=== PATIENT | male | born 1955 | race Caucasian/White ===

== ENCOUNTER 2023-06-29 16:53 | Emergency (ER) | payer OTHER, SELFPAY ==
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
[2023-06-29 17:31] VITALS: BP 177/101; PULSE 68; RESP 18; TEMP 36.8; O2SAT 97; BMI 27.3
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
== END 2023-06-29 19:20 | disposition home or self-care (01) ==
PROVIDERS: Emergency Provider Emergency Medicine
DX: S62.91XA Unspecified fracture of right hand, initial encounter for closed fracture (principal); M25.531 Pain in right wrist; V43.52XA Car driver injured in collision with other type car in traffic accident, initial encounter; Y93.9 Activity, unspecified; Y92.410 Unspecified street and highway as the place of occurrence of the external cause; Y99.9 Unspecified external cause status
CPT/HCPCS: 29125; 73110; 73130; 99282; 99283

== ENCOUNTER 2023-07-01 08:22 | Outpatient (AMB) | payer OTHER, SELFPAY ==
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
== END 2023-07-01 09:16 | disposition home or self-care (01) ==
PROVIDERS: Visit Provider Physician Assistant
DX: S62.306A Unspecified fracture of fifth metacarpal bone, right hand, initial encounter for closed fracture (principal)
CPT/HCPCS: 26600; 99204

== ENCOUNTER → 2023-07-01 08:22 | Outpatient (BNVA) | payer OTHER, SELFPAY | PROVIDERS: Visit Provider Physician Assistant | DX: S62.306A Unspecified fracture of fifth metacarpal bone, right hand, initial encounter for closed fracture (principal) | CPT/HCPCS: 26600 ==

== ENCOUNTER 2023-07-08 08:41 | Outpatient (REF) | payer OTHER, SELFPAY | END 2023-07-08 08:42 | disposition home or self-care (01) | LOC: HO.HOSX 08:41 | PROVIDERS: Visit Provider Physician Assistant | DX: S62.306D Unspecified fracture of fifth metacarpal bone, right hand, subsequent encounter for fracture with routine healing (principal) | CPT/HCPCS: 29085; 73130; 99212 ==

== ENCOUNTER 2023-07-08 08:41 | Outpatient (AMB) | payer OTHER, SELFPAY ==
--- NOTE | 2023-07-08 08:47 | A.OFFVIS_ITS ---
Intake Vital Signs 07/08/23 08:48 Height 5 ft 7 in Weight 174 lb BMI 27.2 Intake Visit Reasons: ov- RT 5th Metacarpal FX DOI 06/29/23. Intake Note: La Nena 68 year old right hand dominant male presents today for a follow up of his right 5th metacarpal fx, DOI 06/29/23. Patient reports that his swelling has improved. He continues to have soreness in his hand. Allergies No Known Allergies Allergy (Verified 07/08/23 08:49) HPI ov- RT 5th Metacarpal FX DOI 06/29/23. HPI Details 68-year-old male who returns to the [facility] today for a follow-up of right 5th metacarpal fracture, 06/29/23. He states he has improvement in his pain and swelling but he does c/o soreness in his hand. He is doing well overall and has no other concerns today. [facility] Surgical History Hx of left knee surgery Social History Alcohol intake: current Patient Tobacco Use Status: Never used Tobacco Current occupational status: employed Current occupation: logging truck driver Review of Systems Const All systems reviewed & are unremarkable except as noted in HPI and below Physical Exam Vital Signs: BMI result Body Mass Index 27.2 Const General: cooperative and no acute distress Orientation/consciousness: patient oriented x3 Resp Effort & Inspection: normal respiratory effort and able to speak in complete sentences Cardio Peripheral pulses: Peripheral pulses 2+ throughout Skin General skin exam: no rashes or lesions noted Neuro General: patient oriented x3 Extrem Other: Right hand: Significant edema located over the 4th and 5th metacarpals on the dorsal aspect of the hand. Tenderness to palpation at the fracture site of the 5th metacarpal. Able to flex and extend all digits but is significantly limited due to pain and stiffness. Full wrist ROM. Sensation intact. Capillary refill is brisk. Office Procedures Casting/Splints 97156-Rhsb/Wrist Cast Application Procedure code (CPT) selection complete Results Reviewed Results Reviewed: Xrays were obtained in the office today and personally reviewed by me show an Oblique fracture distal fifth metacarpal with mild displacement. No additional fracture seen. Assessment & Plan Assessment & Plan (1) Fracture of fifth metacarpal bone of right hand: Code(s): S62.306A - Unspecified fracture of fifth metacarpal bone, right hand, initial encounter for closed fracture Qualifiers: Encounter type: initial encounter Fracture alignment: nondisplaced Fracture type: closed Metacarpal location: unspecified portion of metacarpal Qualified Code(s): S62.306A - Unspecified fracture of fifth metacarpal bone, right hand, initial encounter for closed fracture Plan He was placed in a short arm finger spica cast. He will perform no lifting more than a cellphone. He will see us back in 4 weeks for cast off and new x-rays, sooner if needed. Orders: Orders XR hand RT min 3V Today M79.641 - Pain in right hand Patient Instructions: Scribed for Maddison Holliday PA-C, by Jose Rodriguez medical records technician, on 07/08/2023 at 8:45 AM EST. I, Maddison Holliday PA-C, have personally reviewed and agree with the information entered by the scribe. Coding Level of Care Code Global (12748) Diagnoses Closed nondisplaced fracture of fifth metacarpal bone of right hand, unspecified portion of metacarpal, initial encounter S62.306A Encounter type: initial encounter Fracture alignment: nondisplaced Fracture type: closed Metacarpal location: unspecified portion of metacarpal CPT Codes Casting - CPT: 36473-Azjd/Wrist Cast Application ([id number])
[2023-07-08 08:48] VITALS: BMI 27.2
== END 2023-07-08 09:52 | disposition home or self-care (01) ==
PROVIDERS: Visit Provider Physician Assistant
DX: S62.306A Unspecified fracture of fifth metacarpal bone, right hand, initial encounter for closed fracture (principal)
CPT/HCPCS: 29085; 99024

== ENCOUNTER 2023-08-05 07:34 | Outpatient (REF) | payer OTHER, SELFPAY ==
--- NOTE | ~2023-08-05 | XR_ITS ---
EXAMINATION: XR HAND, RIGHT CLINICAL INFORMATION: Pain. COMPARISON: Prior radiographs, most recently 07/08/2023. TECHNIQUE: PA, lateral, and oblique views of the right hand. FINDINGS: Bony alignment and mineralization are normal. There is an ulnar minus variance. An oblique, comminuted fracture is seen of the distal shaft and metaphysis of the right fifth metacarpal bone. There is stable mild displacement of fracture fragments, with good periosteal callus formation now noted. No focal soft tissue swelling, gas or foreign body is seen. Again, there are degenerative soft tissue calcifications in the proximal index finger. XR/XR hand RT min 3V IMPRESSION: There is stable alignment of an oblique, comminuted fracture of the distal right fifth metacarpal bone. There is good adjacent periosteal callus formation now noted.
== END 2023-08-05 07:35 | disposition home or self-care (01) ==
LOC: HO.HOSX 07:34
PROVIDERS: Visit Provider Physician Assistant
DX: S62.306D Unspecified fracture of fifth metacarpal bone, right hand, subsequent encounter for fracture with routine healing (principal)
CPT/HCPCS: 73130; 99212

== ENCOUNTER 2023-08-05 07:59 | Outpatient (AMB) | payer OTHER, SELFPAY ==
[2023-08-05 08:18] VITALS: BMI 27.2
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
== END 2023-08-05 08:59 | disposition home or self-care (01) ==
PROVIDERS: PCP Physician Assistant Medical; Visit Provider Physician Assistant
DX: S62.306A Unspecified fracture of fifth metacarpal bone, right hand, initial encounter for closed fracture (principal)
CPT/HCPCS: 99024

== ENCOUNTER 2023-08-26 08:05 | Outpatient (AMB) | payer OTHER, SELFPAY ==
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
[2023-08-26 08:18] VITALS: BMI 27.2
== END 2023-08-26 08:33 | disposition home or self-care (01) ==
PROVIDERS: PCP Physician Assistant Medical; Visit Provider Physician Assistant
DX: S62.306A Unspecified fracture of fifth metacarpal bone, right hand, initial encounter for closed fracture (principal); M25.641 Stiffness of right hand, not elsewhere classified
CPT/HCPCS: 99024

== ENCOUNTER 2023-08-26 16:00 | Outpatient (REF) | payer OTHER, SELFPAY ==
--- NOTE | ~2023-08-26 | XR_ITS ---
EXAMINATION: XR HAND, RIGHT CLINICAL INFORMATION: Pain and unspecified hand. COMPARISON: 08/05/2023, 07/08/2023, and 06/29/2023 and right hand radiographs. TECHNIQUE: PA, lateral, and oblique views of the right hand. FINDINGS: Redemonstration of an oblique comminuted fracture of the distal shaft and metaphysis of the fifth metacarpal with similar mild displacement of fracture fragments. Increased periosteal calcification. Ulnar-minus variance. Faint calcifications in the soft tissues just distal to the ulna. Redemonstration of grouped calcifications in the soft tissues of the proximal second digit. Moderate degenerative changes in the first carpometacarpal joint with joint space narrowing and hypertrophic change. XR/XR hand RT min 3V IMPRESSION: Redemonstration of comminuted fracture of the distal fifth metacarpal with similar mild displacement of fracture fragments. Increased periosteal calcification.
== END 2023-08-26 16:01 | disposition home or self-care (01) ==
LOC: HO.HOSX 16:00
PROVIDERS: Visit Provider Physician Assistant
DX: S62.306D Unspecified fracture of fifth metacarpal bone, right hand, subsequent encounter for fracture with routine healing (principal)
CPT/HCPCS: 73130; 99212

== ENCOUNTER 2023-09-26 08:00 | Outpatient (RCR) | payer OTHER, SELFPAY ==
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
--- NOTE | 2023-08-25 13:48 | MHC.OT.OP ---
[address] [phone] F: [phone] Occupational Therapy Progress Note Patient Name: Jayme Roy Diagnosis: R D5 MC fx Date of Evaluation: 08/08/23 Treatments to Date: 6 Subjective: It still hurts in my wrist, I wake up and its stiff in the morning and I have to warm up Pain Score: 2 Pain Location: Right wrist/felxors Objective Measures: Right hand pre-tx 2.5 cm tip-DPC -> post-tx passive tip-palm and active 1 cm to palm Wrist 64/66 Status: Progressing Assessment: 8 weeks s/p D5 MC fx, still w/ signficant digit stiffness, but improving somewhat today from last appt. Still feeling tightness in flexors w/ active gripping. Good gains made during visit, some carry over from last tx, will benefit from trial static progressive flex orthosis. Short Term Goals: Right hand AROM 3 cm tip-DPC (met) Wrist AROM >60/60 (met) Pt to report good use of right hand w/ light bimanual tasks (folddng laundry, light dishes) (met) Ind w/ use of ice/heat appropriately (met) Ela Teacher Goals: Figure 8 edema <45 cm Right hand AROM tip-DPC Pt to demo light and carry >30lb w/ ease Wean from orthosis wear Pt to report ease w/ pulling himself up into truck cab Frequency and Duration: The patient will be seen 2x/wk for 4 weeks Treatment Plan: Therapeutic Exercise Therapeutic Activity Home Exercise Program Splinting Patient Education Edema Control ADL Training Ultrasound Paraffin Fluidotherapy MHP Cold Packs Soft Tissue Mobilization Kinesiotaping Hand based ulnar gutter PRN Electronically Signed By: Vania Johnston OTR/L CHT Reviewed/agree with student documentation: Therapist:
--- NOTE | 2023-09-26 09:46 | MHC.OT.DC ---
[address] [phone] F: [phone] Occupational Therapy Discharge Note Patient Name: Jayme Roy Provider: Juany Feliciano PA-C Diagnosis: R D5 MC fx Date of Evaluation: 08/08/23 Date of Discharge: 09/26/23 Treatments to Date: 15 Discharge Status: Improved Function Independent with HEP Discharge Summary: Jayme is now about 13 weeks s/p D5 MC fx. His hand ROM continues to improve, more stiffness in the morning but w/ warm-up, able to come tip to palm with ease. Still w/ some numbness/tingling in hands at nighttime, improves w/ positional changes. Progressing well w/ functional strengthening, still w/ low fund controller strength (R 35lb vs L 92lb) but able to demo functional grasps and carry for bigger items, still difficulty w/ gripping smaller items. He is ind w/ his home program and I anticipate he will continue to progress w/ range and strength over time. Electronically Signed By: Vania Johnston OTR/Wilbert CHT Reviewed/agree with student documentation: Therapist: Please Sign and return to therapist, thank you for your referral.
== END 2023-09-26 09:47 | disposition home or self-care (01) ==
LOC: HO.OT 08:00
PROVIDERS: PCP Physician Assistant Medical; Visit Provider Physician Assistant
DX: S62.306D Unspecified fracture of fifth metacarpal bone, right hand, subsequent encounter for fracture with routine healing (principal)
CPT/HCPCS: 29125; 97035; 97110; 97165; 97760

== ENCOUNTER 2023-09-27 08:49 | Outpatient (AMB) | payer OTHER, SELFPAY ==
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
[2023-09-27 08:59] VITALS: BMI 29.9
== END 2023-09-27 09:15 | disposition home or self-care (01) ==
PROVIDERS: PCP Physician Assistant Medical; Visit Provider Physician Assistant
DX: S62.306D Unspecified fracture of fifth metacarpal bone, right hand, subsequent encounter for fracture with routine healing (principal); M25.641 Stiffness of right hand, not elsewhere classified
CPT/HCPCS: 99024

== ENCOUNTER 2023-09-27 14:37 | Outpatient (REF) | payer OTHER, SELFPAY ==
--- NOTE | ~2023-09-27 | XR_ITS ---
EXAMINATION: XR HAND, RIGHT CLINICAL INFORMATION: Pain. COMPARISON: Radiographs dated 08/28/2013. TECHNIQUE: PA, lateral, and oblique views of the right hand. FINDINGS: The previously noted fifth metacarpal shaft fracture now appears healed. No dislocation is seen. The proximal and distal carpal rows are intact. There is very mild osteoarthritic change of the first carpometacarpal joint. There is an ulnar minus variance. Soft tissue calcifications are redemonstrated of the proximal index finger. XR/XR hand RT min 3V IMPRESSION: A healed fracture is now noted of the distal fifth metacarpal shaft.
== END 2023-09-27 14:38 | disposition home or self-care (01) ==
LOC: HO.HOSX 14:37
PROVIDERS: Visit Provider Physician Assistant
DX: S62.306D Unspecified fracture of fifth metacarpal bone, right hand, subsequent encounter for fracture with routine healing (principal)
CPT/HCPCS: 73130; 99212